=== PATIENT | female | born 1965 | race Two or more races ===

== ENCOUNTER 2019-09-22 03:50 | Emergency (ER) | payer OTHER ==
[~2019-09-22] VITALS: Ht 149.9 cm; Wt 74.8 kg
[2019-09-22 07:40] VITALS: BP 138/63
[2019-09-22] MEDS ORDERED: ACETAMINOPHEN/CODEINE#3 (300/30mg) TAB PO ONE (07:45)
== END 2019-09-22 08:58 | disposition home or self-care (01) ==
LOC: EDBD 03:50 → ER 03:50
DX: R07.81 Pleurodynia (principal); R51 Headache; E11.9 Type 2 diabetes mellitus without complications; I10 Essential (primary) hypertension; E78.5 Hyperlipidemia, unspecified; V43.62XA Car passenger injured in collision with other type car in traffic accident, initial encounter; Y93.89 Activity, other specified; Y99.8 Other external cause status; Y92.410 Unspecified street and highway as the place of occurrence of the external cause
CPT/HCPCS: 70450; 71045; 71101; 93005